=== PATIENT | female | born 1960 | race Caucasian/White ===

== ENCOUNTER 2017-09-10 09:08 | Day surgery (SDC) | payer BC ==
[2017-09-08 15:51] LABS: Absolute Lymphocytes (CBC) 2.7 K/uL (0.7-4.9); Absolute Monocytes 0.9 K/uL (0.1-1.3); Absolute Neutrophil 3.9 K/uL (1.8-8.0); Basophils % 1.1 % (0-1.3); Eosinophils % 3.5 % (0-4.4); Hematocrit 41.9 % (36.0-45.0); Lymphocytes % 34.2 % (15.3-44.8); MCH 29.9 pg (27.0-35.0); MCV 90.2 fL (80-100); MPV 8.3 fL (7.6-11.3); RBC Red Blood Cell Count 4.65 M/uL (3.86-4.86)
[2017-09-10] MEDS ORDERED: Ringers Lactate 1,000 ML IV ONE (09:47)
[2017-09-10] MEDS ORDERED: LIDOCAINE 1% W/EPI 1:100,000 MDV 50 ML VIAL ONE (10:40)
[2017-09-10] MEDS ORDERED: MIDAZOLAM HCL 2 MG/2 ML INJ ONE (10:45)
[2017-09-10] MEDS ORDERED: FENTANYL CITR 100 MCG/2 ML ONE (11:03)
[2017-09-10] MEDS ORDERED: PROPOFOL 200 MG/20 ML VIAL IV ONE (11:03)
[2017-09-10] MEDS ORDERED: SCOPOLAMINE HYDROBROMIDE PATCH TD ONE (11:07)
[2017-09-10] MEDS ORDERED: DEXAMETHASONE 10 MG/ML VIAL ONE (11:15)
[2017-09-10] MEDS ORDERED: GLYCOPYRROLATE 0.2 MG/ML SYR ONE (11:35)
--- NOTE | 2017-09-10 12:29 | P.BOP ---
Preoperative diagnosis: left LAD Postoperative diagnosis: same Primary procedure: excision deep cervical lymph node Estimated blood loss: <5ml Specimen: L cervical LN, fresh Anesthesia: General Complications: None Implants: none Fluids & blood products: crystalloid 800ml Transferred to: Recovery Room Condition: Good
[2017-09-10] MEDS ORDERED: ONDANSETRON 4 MG/2 ML VIAL ONE ×2 (12:53→13:57)
[2017-09-10] MEDS ORDERED: Mastisol Adhesive Liq ONE (12:55)
[2017-09-10] MEDS ORDERED: METOCLOPRAMIDE 10 MG/2mL INJ ONE (12:57)
[2017-09-10] MEDS ORDERED: PROMETHAZINE 25 MG/ML VIAL ONE (13:03)
--- NOTE | 2017-09-10 17:27 | OP ---
Date of Procedure: 09/10/2017 Surgeon: Chula Michelle MD Preoperative Diagnosis: Left cervical lymphadenopathy. Postoperative Diagnosis: Left cervical lymphadenopathy, pathology pending. Procedure: Excision of deep cervical lymph node. Indication For Procedure: Chela Kim is a 56-year-old who presented in May with palpable ce rvical lymphadenopathy of the left neck. She is a smoker and underwent direct laryngoscopy with biop sy of the left base of tongue and left tonsil and a fine-needle aspiration of the left cervical lymph node. The base of tongue and tonsil tissue showed normal lymphoid follicles and the neck fine-needl e aspiration was nondiagnostic. She then underwent an ultrasound-guided core needle biopsy of the ce rvical lymph node, which was likewise nondiagnostic. She opted for an initial period of observation and was treated with steroids for possible reactive lymphadenopathy, but a followup ultrasound in Jul revealed the lymph node to be increasing in size and recommendation was made for excision for diag nostic purpose. The risks, benefits, and alternatives to the procedure were discussed with the patie nt who agreed to proceed. Description Of Procedure: The patient was brought to the operating room. She was placed under gener al anesthesia via a laryngeal mask airway. A shoulder roll was placed and the head was turned to the right for exposure of the left neck. The planned incision site was injected with 1 mL of 1% lidocai ne with epinephrine. A horizontal incision was made in an existing skin crease and the subcutaneous tissues were divided. The external jugular was in the anterior portion of the incision and was initi ally preserved. Dissection was carried out along the superficial surface of the sternocleidomastoid muscle and the great auricular nerve was identified and protected. The initial dissection attempt wa s made along the posterior border of the sternocleidomastoid muscle, but there was concern for possib le injury and difficulty in identifying the spinal accessory nerve. Therefore, the external jugular was divided and the anterior border of the sternocleidomastoid muscle was identified and retracted la terally with pressure on the posterior aspect. I was able to identify the lymph node of interest and blunt dissection was carried out using a cruz Aritaabe dissector and LigaSure for division of soft t issue attachments. The node was completely excised and was sent to pathology as a fresh specimen for further evaluation. The surgical cavity was thoroughly irrigated with sterile saline and inspected. There was no evidence of bleeding. The incision was then closed in a layered fashion using 4-0 Juan ryl suture for the deep tissues and a 5-0 Monocryl subcuticular suture for the skin. A Mastisol and Steri-Strip dressing was applied to the incision and the patient was returned to care of anesthesia f or awakening, extubation in the operating room, which proceeded without difficulty. Complications: None. Disposition: The patient will be discharged home later today and follow up with Dr. Miguel Angel holloway I will contact the patient regarding the pathology results once they become available. CORTES/CORRIE Voice ID: [id number] Report ID: [id number]
== END 2017-09-10 14:20 | disposition home or self-care (01) ==
LOC: OR 09:08
PROVIDERS: ATTEND Otolaryngology
PROC: 07B20ZX Excision of Left Neck Lymphatic, Open Approach, Diagnostic (ICD-10-PCS; principal; 2017-09-10 11:00)
DX: R59.0 Localized enlarged lymph nodes (principal); F17.210 Nicotine dependence, cigarettes, uncomplicated; J44.9 Chronic obstructive pulmonary disease, unspecified; Z88.0 Allergy status to penicillin; Z88.3 Allergy status to other anti-infective agents; Z88.6 Allergy status to analgesic agent; Z83.3 Family history of diabetes mellitus; Z82.3 Family history of stroke
CPT/HCPCS: 36415; 85025; 88305; J1100; J2250; J2405; J2550; J2765; J3010